=== PATIENT | female | born 1990 | race Caucasian/White ===

== ENCOUNTER 2022-07-27 09:10 | Inpatient (IN) | payer MEDICAID, SELFPAY ==
[2022-07-27] VITALS (52 sets, daily range): BP systolic 91–154; BP diastolic 52–90; PULSE 60–102; TEMP 36.2–37.3; O2SAT 81–100; BMI 25.5
[2022-07-27 09:08] LABS: ROM Internal Control Test YES-OK TO RESULT pt. (Internal QC)
[2022-07-27 09:10] LABS: ROM Patient Test POSITIVE (Negative); Record Kit Lot#, ROM+ K1374
[2022-07-27 11:12] LABS: Amphetamine Urine VISTA NEGATIVE (<1000 ng/mL); Barbiturate Urine VISTA NEGATIVE (< 200 ng/mL); Benzodiazepine Urine VISTA NEGATIVE (< 200 ng/mL); Cocaine Urine VISTA NEGATIVE (< 300 ng/mL); Ecstacy Urine VISTA NEGATIVE (< 500 ng/mL); Methadone Urine VISTA NEGATIVE (< 300 ng/mL); PCP Urine VISTA NEGATIVE (< 25 ng/mL); THC Urine VISTA NEGATIVE (< 50 ng/mL); Vista UDS pH Range 6
[2022-07-27] MEDS: Lactated Ringers 1,000 ML 50 ML IV (12:00)
[2022-07-27 12:18] LABS: Absolute Lymphocyte Count 1.48 X10^3/uL (0.83-4.51); Absolute Neutrophil Count 14.7 X10^3/uL (2.0-7.7); Basophil# 0.04 X10^3/uL; Basophil% 0.2 % (0-1); Hematocrit 44.3 % (37-47); Lymphocyte # 1.48 X10^3/ul (0.83-4.51); Lymphocyte % 8.7 % (19-41); Mean Corp Hgb Conc 33.9 g/dL (32-36); Mean Corpuscular Hgb 31.8 pg (27.0-32.0); Mean Corpuscular Volume 94.1 fL (81-99); Mean Platelet Vol. 10.1 fl (6.2-12.0); Monocyte# 0.69 X10^3/uL; NRBC Flagged by Analyzer 0 % (0-5); Neutrophil # 14.71 X10^3/uL (2.7-7.7); Neutrophil % 86.4 % (47-70); Platelet Count 316 K/mm3 (150-450); RBC Distribution Width SD 47.5 fl (35.1-43.9); Red Blood Count 4.71 M/mm3 (4.2-5.4)
[2022-07-27 13:12] LABS: Syphilis Antibodies Non-reactive
--- NOTE | 2022-07-27 13:38 | PCM.HP.OB ---
HPI - General General Date of Admission: 07/27/22 Chief Complaint: SROM and CTX HPI Narrative JOSELO AMBROSE, is a 31 F @ 39+ weeks who presents c/o SROM since 07/26/22 6pm and ctx, h/o CS for breech. desires TOLAC with minimal interventions. pt with limited PNC and transfer from [facility]. h/o Drug abuse and continue marijuana use in . h/o HSV on Acylovir- reports no signs of outbreak. states last outbreak was prior to 36 weeks gestation. PFSH PFS Medical History (Updated 07/27/22 @ 13:[address] Anna Esparza MD) Anxiety Depression Genital herpes affecting Psychiatric disorder Home Medications acyclovir 400 mg tablet 400 mg PO TID Check with primary doctor 07/27/22 [History Last Taken 07/27/22 07:00 400 mg] [id number] 1 mg tablet 1 tab PO DAILY Check with primary doctor 07/27/22 [History Last Taken 07/27/22 08:00 1 tablet] Allergy/AdvReac Type Severity Reaction Status Date / Time Penicillins Allergy Unknown Hives Verified 07/27/22 13:55 Surgical History (Updated 07/27/22 @ 13:[address] Anna Esparza MD) History of surgery Previous section Social History Smoking Status: Heavy Smoker (>10/day) History Elective abortions Hx Para 1 Spontaneous abortions Hx # Term Pregnancies Ectopic pregnancies Hx # Pregnancies Multiple births # of living children Vital Signs Vital Signs Vital Signs: 07/27/22 09:17 07/27/22 09:17 07/27/22 09:19 Temperature Temperature Source Pulse Rate 86 Blood Pressure 126/84 H BP Systolic 126 BP Diastolic 84 Pulse Ox 99 07/27/22 09:19 07/27/22 09:20 07/27/22 09:20 Temperature Temperature Source Temporal Pulse Rate 102 H 99 Blood Pressure BP Systolic BP Diastolic Pulse Ox 07/27/22 09:20 07/27/22 09:20 07/27/22 10:56 Temperature 98.4 F Temperature Source Pulse Rate Blood Pressure 122/73 H BP Systolic 122 BP Diastolic 73 Pulse Ox 98 07/27/22 10:56 07/27/22 10:55 07/27/22 10:57 Temperature Temperature Source Temporal Pulse Rate 64 68 Blood Pressure BP Systolic BP Diastolic Pulse Ox 07/27/22 10:57 07/27/22 10:55 07/27/22 12:51 Temperature 98.0 F Temperature Source Pulse Rate Blood Pressure 145/67 H BP Systolic 145 BP Diastolic 67 Pulse Ox 99 07/27/22 12:51 07/27/22 12:50 07/27/22 12:50 Temperature Temperature Source Temporal Pulse Rate 85 85 Blood Pressure BP Systolic BP Diastolic Pulse Ox 07/27/22 12:50 07/27/22 12:50 Temperature 97.9 F Temperature Source Pulse Rate Blood Pressure BP Systolic BP Diastolic Pulse Ox 100 Weight Weight: 73.936 kg Body Mass Index (BMI) 25.5 Physical Exam Narrative pt unable to sit still, not compliant with exams and very uncooperative. difficult VE due to this- but feels like 1-1.5cm/ posterior - no HSV lesions noted on external vulva. Labs Labs Labs: Blood Type O POSITIVE Antibody Screen NEGATIVE Hct 44.3 % (37-47) Hgb 15.0 g/dL (12.0-15.0) Syphilis Total Ab Non-reactive Assessment & Plan (1) Drug use affecting in third trimester: (2) History of section complicating : (3) Psychiatric disorder: (4) Depression: (5) Genital herpes affecting : (6) Anxiety: PLAN: Plan Admit to L&D [facility] FHR/TOCO Epidural if requested for pain Monitor VS GBS negative ROM plus positive pt refused to sign consent in office- i called once i got to the office and realized this- was able to discuss this over the phone with patient. Pt signed consent. Pt is refusing intervention including cervical exams and epidural. I explained to her that with her being TOLAC with unproven pelvis I do not feel this is reasonable and that she needs to be able to be monitored and she is not able to sit still to be monitored well. i feel that epidural would be best to keep her comfortable. I did offer her to proceed with primary cs but patient refused. Pt was refusing at time of admission but when i re-approached her around 2pm she is considering. I do not feel she is a good candidate for IOL as she again has not been reasonable during admission process, will see if labor progress on own at this time, will not start pitocin at this time however this may be considered at later time. Pt is difficult to have reasonable conversation about plan of care and expectations for TOLAC.
[2022-07-27] MEDS: LACTATED RINGERS 500 ML 999 ML IV (13:45)
[2022-07-27] MEDS: fentaNYL 100 MCG/2 ML Ampul IV (14:15)
[2022-07-27] MEDS: fentaNYL-bupivacaine (epidural) 100 ML BAG EPIDURAL ×3 (14:28→23:20)
--- NOTE | 2022-07-27 15:16 | PCM.PN.BLA ---
Progress Note Seen at bedside status post epidural placement. Still complaining of contraction pain. Did allow vaginal exam. VE: 1.5cm/85/-2. I had a discussion with the patient that I would recommend placing IUPC and IFM- Pt declines. I discussed with the patient that at this time I am not comfortable starting pitocin as I do not feel the patient would be agreeable to interventions in the event of an emergency- partner in the room was in agreement and apologetic. I told the patient I do not feel that she trusts the medical decisions I am offering her at this time and that our patient/physician rapport is minimal. I am not comfortable with the amount of pain the patient is in without making cervical change - again another reason for not starting pitocin on a previous patient with a LTCS scar. At this time it appears patient refusing cs and wishes to continue to labor- pt was counseled earlier about risks of TOLAC and prolonged ROM.
[2022-07-27] MEDS: CLARIFY ORDER NOTE (15:48)
[2022-07-27] MEDS: Lactated Ringers 1,000 ML 200 ML IV ×2 (18:08→23:20)
--- NOTE | 2022-07-27 19:39 | PCM.PN.BLA ---
Progress Note on unit for TOLSTEVEN who is now 4cm on most recent exam- FHR with occasional variable decelerations- declines internal monitors. will reexamine at 9pm
--- NOTE | 2022-07-27 21:12 | PCM.PN.BLA ---
Progress Note pt seen at bedside, examined- VE: /-2, IUPC placed. Discussion with patient that no cervical change made- we discussed prolonged ROM and not in active labor- reviewed that at this point she is at increased risk of infection. we discussed possibility of starting pitocin but reviewed that the medication has potential to cause change with FHR and at this point i am only willing to do so if she understands and is willing to proceed with cs if indicated. pt is minimally verbal in communication and just reports that she wants to continue. FHR tracing reviewed- at this time FHR is cat 1 and reactive, however she does have recurrent lates at times throughout tracing with moderate variabilt and accelerations. For this time- will continue without augmentation. pt declines CS.
--- NOTE | 2022-07-27 23:06 | PCM.PN.BLA ---
Progress Note pt examined 4-5cm/80/-2 , cervix not as thin as it was. Pt wants more time. wants to be reexamined in one hour and then may consider cs.
--- NOTE | 2022-07-27 23:59 | PCM.PN.BLA ---
Progress Note pt examined at bedside- 6cm/80/-2 station. decision to continue to labor. No augmentation with pitocin.
[2022-07-28] VITALS (51 sets, daily range): BP systolic 102–127; BP diastolic 53–73; PULSE 68–114; RESP 14–18; TEMP 36.5–37.3; O2SAT 94–98
[2022-07-28] MEDS: fentaNYL-bupivacaine (epidural) 100 ML BAG EPIDURAL (04:06)
[2022-07-28] MEDS: Lactated Ringers 1,000 ML 200 ML IV (04:14)
[2022-07-28] MEDS: Oxytocin 10 UNITS/ML Vial IM (05:02)
--- NOTE | 2022-07-28 05:06 | EX.PCM.OBRPT ---
Vaginal Delivery Maternal Presentation Maternal Presentation: Spontaneous Rupture of Membranes Maternal Presentation: TOLAC Operative Information Date of Procedure: 07/28/22 Pre-Operative Diagnosis: TOLAC, 39 + weeks, h/o HSV, Drug use in , Psychiatric disorder Post-Operative Diagnosis: same, live female Surgery / Procedure Performed: Vacuum Assisted Vaginal Delivery Type of Anesthesia: Epidural Drain: Hernandez to straight drain Estimated Blood Loss: 100 Time of Delivery: 04:52 Findings Description of Procedure: Progressed to fully dilated. Good maternal pushing efforts delivered the infant's head followed by the 's shoulders gentle downward traction delivered the anterior followed by the posterior shoulder and the rest the 's body. Infant was placed on the mother's chest. Delayed cord clamping was performed. Cord was then clamped and cut. Infant was vigorous at time of delivery. IM Pitocin was given patient did not notify the staff or myself that she did not want IM Pitocin given until after it was administered. Per nursing they had a discussion regarding Pitocin after delivery. After discussion I told the patient that I would not hang the IV Pitocin however if bleeding or happy that that would be my recommendation to prevent a hemorrhage. Patient is resistant for interventions. Presentation: Vertex Amniotic Membrane Rupture Type: Spontaneous Amniotic Fluid Description: Clear Placental Delivery Description: Spontaneous Placenta Disposition: [facility] Specimen(s) Removed: placenta Cord Vessel Description: 3 Vessels Cord Entanglement: None A Gender: Female (1 minute): 8 (5 minute): 9 Delayed Cord Clamping: Yes Post Vaginal Delivery Medications Given After Delivery: IM Pitocin Episiotomy Description: None Laceration: None Complication Complications: None
[2022-07-28] MEDS: Ibuprofen 600 MG Tablet PO ×2 (10:51→17:49)
[2022-07-28] MEDS: Acetaminophen 500 MG Tablet 1000 MG PO ×2 (16:22→22:24)
[2022-07-28] MEDS: Acyclovir 200 MG Capsule 400 MG PO ×2 (16:24→22:24)
[2022-07-29 05:20] VITALS: BP 116/64; PULSE 88; RESP 14; TEMP 36.4
[2022-07-29] MEDS: Acyclovir 200 MG Capsule 400 MG PO ×3 (06:22→22:51)
[2022-07-29] MEDS: Ibuprofen 600 MG Tablet PO ×3 (06:22→20:12)
[2022-07-29 07:45] VITALS: BP 109/69; PULSE 72; RESP 15; TEMP 36.6
[2022-07-29 07:56] VITALS: BP 109/69; PULSE 72
[2022-07-29] MEDS: Acetaminophen 500 MG Tablet 1000 MG PO ×2 (08:05→16:23)
--- NOTE | 2022-07-29 08:39 | PN.OBGYN_ITS ---
Subjective Subjective Pain well controlled. Average lochia. No new complaints. Objective Data Objective Data Vital Signs: Vital Signs Temp Pulse Resp BP Pulse Ox O2 Del Method 97.6 F L 72 14 109/69 96 Room Air 07/29/22 05:20 07/29/22 07:56 07/29/22 05:20 07/29/22 07:56 07/28/22 16:26 07/29/22 05:20 Oxygen Delivery Method Room Air Weight: 73.936 kg Body Mass Index (BMI) 25.5 Intake & Output: Intake and Output for Last 24 Hours 07/27/22 07/28/22 07/29/22 23:59 23:59 23:59 Intake Total 1306.67 / 1306.67 2513.33 / 2513.33 Output Total 500 / 500 2400 / 2400 Balance 806.67 / 806.67 113.33 / 113.33 Lab / Micro Data Result Diagrams: 07/27/22 12:00 Physical Exam Const alert and no apparent distress Narrative: Fundus firm, below umbilicus. Assessment & Plan (1) (vaginal after ): PLAN: day 1 status post vaginal after previous section. Patient and are doing well. Patient is working on breast- feeding. Patient may elect to go home later today, she has not decided. Routine care at this time.
--- NOTE | 2022-07-29 09:19 | NURSING ---
vapes seen in room- pt reminded not to vape while she is in her room
[2022-07-29 12:17] VITALS: BP 111/59; PULSE 76
[2022-07-29 12:39] VITALS: BP 111/59; PULSE 76; RESP 16; TEMP 36.6
[2022-07-29 19:40] VITALS: BP 119/60; PULSE 78; RESP 14; TEMP 36.6
[2022-07-30 01:23] VITALS: BP 111/69; PULSE 69; RESP 14; TEMP 36.2
[2022-07-30] MEDS: Acyclovir 200 MG Capsule 400 MG PO (06:48)
[2022-07-30 08:16] VITALS: BP 119/73; PULSE 70; RESP 16; TEMP 36.6; O2SAT 98
[2022-07-30 08:17] VITALS: BP 119/73; PULSE 86; O2SAT 98
--- NOTE | 2022-07-30 08:27 | PCM.PN.OB ---
Subjective Subjective Patient seen at bedside. Feeling good. Denies any pain. Ambulating and voiding without difficulty. Lochia decreasing. Objective Data Objective Data Vital Signs: Vital Signs Temp Pulse Resp BP Pulse Ox O2 Del Method 97.8 F 86 16 119/73 98 Room Air 07/30/22 08:16 07/30/22 08:17 07/30/22 08:16 07/30/22 08:17 07/30/22 08:17 07/30/22 08:16 Oxygen Delivery Method Room Air Weight: 163 lb Body Mass Index (BMI) 25.5 Intake & Output: Intake and Output for Last 24 Hours 07/28/22 07/29/22 07/30/22 23:59 23:59 23:59 Intake Total 2513.33 / 2513.33 Output Total 2400 / 2400 Balance 113.33 / 113.33 Lab / Micro Data Result Diagrams: 07/27/22 12:00 ROS Eyes Eyes: Denies blurry vision, change in vision or spots in vision ENT HEENT: Denies dizziness or headache(s) Cardiovascular Cardiovascular: Denies abdominal pain, chest pain or dyspnea Respiratory/Chest Respiratory/Chest: Denies cough, dyspnea, shortness of breath at rest or shortness of breath with exertion Gastrointestinal Gastrointestinal: Denies abdominal pain, diarrhea or vomiting Genitourinary Genitourinary: Denies change in urinary stream, difficulty urinating or dysuria Musculoskeletal Musculoskeletal: Reports none Integumentary Integumentary: Denies rash Neurologic Neurologic: Denies dizziness, headache(s), memory loss or weakness Physical Exam Const alert and no apparent distress General Appearance: cooperative and comfortable Exam Limitations: no limitations HEENT normocephalic Eyes General Eye: normal appearance of both eyes Neck full ROM General: normal visual inspection Chest Chest: symmetrical chest wall rise Resp normal respiratory effort and normal air movement Effort and Inspection: symmetric chest movement Auscultation: clear to auscultation bilaterally Cardio regular rate and regular rhythm GI normal to inspection, nondistended, normoactive bowel sounds Back/Spine normal ROM Extremity full ROM and no calf tenderness General Extremity: normal exam except as noted Skin no rashes or lesions noted Neuro CN's II-XII intact bilaterally Psych mental status grossly normal Assessment & Plan (1) (vaginal after ): (2) Drug use affecting in third trimester: (3) Psychiatric disorder: (4) Depression: (5) Anxiety: PLAN: Plan PPD 1 Routine care Breast feeding support Patient requesting discharge home as soon as possible Denies any current feelings of depression Agrees to follow up in office
--- NOTE | 2022-07-30 08:30 | DCINST_ITS ---
Discharge Instructions Diet Discharge Diet: No restrictions Activity Discharge Activity: Return to Normal Activity, May Shower and May Take a Tub Bath May resume sexual activity in: 4-6 weeks Weight Bearing Status: Weight bearing as tolerated Dressing / Incision Call your doctor if you observe: Fever of 101 or Higher, Inability to urinate, Using more than 1 pad per hour, Shortness of breath, Dizziness, Swelling in the ankles, Chest pain, Calf discomfort and Uncontrolled pain Follow Up Care Please Follow Up With: Marie Livingston CNM When: Within 10 days Test Results: Test results from this visit will be discussed in further detail at your follow- up appointment, if applicable. Discharge Plan Admission Admit Date/Time: 07/27/22 09:10 Primary Reason for Your Visit: Labor and Delivery Attending Provider: Anna Esparza Primary Care Provider: Keesha Pemberton Primary Discharge Orders/Prescriptions Prescriptions: Continued [id number] 1 mg Tablet 1 tab PO DAILY Discontinued acyclovir 400 mg tablet 400 mg PO TID Label Comments: TAKE 1 TABLET BY MOUTH THREE TIMES A DAY Referrals / Follow Up: Care Physician,No Primary [Primary Care Provider] - Disposition Disposition (needs filled in before D/C Order can be placed): Home, Self Care
[2022-07-30] MEDS: Ibuprofen 600 MG Tablet PO (08:50)
== END 2022-07-30 11:45 | disposition home or self-care (01) | DRG 560 ==
LOC: WPOUT 09:12 → WP 09:12
PROVIDERS: Admitting Provider Obstetrics & Gynecology; Referring Provider Obstetrics & Gynecology; Visit Provider Obstetrics & Gynecology
DX: O98.32 Other infections with a predominantly sexual mode of transmission complicating childbirth (principal); Z37.0 Single live birth; O99.324 Drug use complicating childbirth; F41.9 Anxiety disorder, unspecified; F12.90 Cannabis use, unspecified, uncomplicated; F17.200 Nicotine dependence, unspecified, uncomplicated; O76 Abnormality in fetal heart rate and rhythm complicating labor and delivery; A60.00 Herpesviral infection of urogenital system, unspecified; F32.A Depression, unspecified; O99.334 Smoking (tobacco) complicating childbirth; O99.344 Other mental disorders complicating childbirth; O34.219 Maternal care for unspecified type scar from previous cesarean delivery; Z3A.39 39 weeks gestation of pregnancy; Z79.899 Other long term (current) drug therapy
CPT/HCPCS: 59025; 59050; 80307; 84112; 85025; 86780; 86850; 86900; 86901; 99221; J7120; G0378

== ENCOUNTER 2023-12-31 05:37 | Outpatient (CLI) | payer MEDICAID, SELFPAY ==
[2023-12-31 05:56] VITALS: BP 131/76; PULSE 113; RESP 14; TEMP 36.4
[2023-12-31 05:58] VITALS: PULSE 110; O2SAT 100
[2023-12-31 06:17] VITALS: BMI 26.5
== END 2023-12-31 07:43 | disposition left against medical advice (07) ==
LOC: WPOUT 05:45 → WP 05:46 → WPOUT 06:54 → WP 08:04 → WPOUT 01-02 14:15
PROVIDERS: Visit Provider Obstetrics & Gynecology
DX: O44.33 Partial placenta previa with hemorrhage, third trimester (principal); O98.313 Other infections with a predominantly sexual mode of transmission complicating pregnancy, third trimester; A60.00 Herpesviral infection of urogenital system, unspecified; Z79.899 Other long term (current) drug therapy; O99.333 Smoking (tobacco) complicating pregnancy, third trimester; F17.200 Nicotine dependence, unspecified, uncomplicated; Z3A.40 40 weeks gestation of pregnancy; Z53.29 Procedure and treatment not carried out because of patient's decision for other reasons
CPT/HCPCS: 59025; 59050; 76815; 99221; G0378